=== PATIENT | female | born 1975 | race Caucasian/White ===

== ENCOUNTER 2016-11-23 09:42 | Emergency (ER) | payer MEDICAID ==
[2016-11-23 10:08] VITALS: BP 121/86; BMI 24.3
--- NOTE | 2016-11-23 10:58 | DR.EXTPAIN ---
HPI - Time seen Time seen: 10:50 - PCP Primary Care Physician: YO DAMICO - HPI Comment HPI Comment: WORSE TODAY. NO KNOWN INJURY. - Complaint/Symptoms Chief Complaint Doctor Comments: LEFT ARM PAIN TIMES 5 WEEKS. Chief Complaint:: PT C/O PAIN TO HER LEFT ARM PT WAS DX WITH TENNIS ELBOW NOW THE PAIN IS OVER HER WHOLE ARM AND HAND AND SHE HAS SHARP PAINS THAT GO THREW HER HAND ,,, AND Self Treatment fo Chief Complaint: HOME MEDS .. - Nurses notes reviewed Nurses Notes Review: Yes - Source History Provided: Patient - Mode of arrival Mode of Arrival: Ambulatory - Timing Onset of Chief Complaint: 10/13/16 - Context History of: None - Associated signs and symptoms Associated Signs and Symptoms: Pain, Swelling PMH - PMH Past Medical History: Yes Past Medical History: Arthritis Past Surgical History: Yes Surgical History: Hysterectomy, Tonsillectomy - Family History History of Family Medical Conditions: Yes Family Medical History: Diabetes Mellitus, Cancer, [place], Coronary Artery Disease, Hypertension - Social History Does patient currently use any type of tobacco product: Yes Have you used tobacco products in the last 12 months: Yes Type of Tobacco Use: Cigarettes How many years tobacco product used: 10 Does any household member use tobacco: No Alcohol Use: None Do you use any recreational Drugs:: No Lives With: Family Lives Where: Assisted Care - infectious screening In the last 2 months have you had wt loss of >10#?: NO Have you had fever, night sweats or hemotysis?: No Have you traveled outside the country in the last 6 months?: No Isolation: Standard ROS - Review of Systems Constitutional: No Symptoms Reported Eyes: No Symptoms Reported ENTM: No Symptoms Reported Respiratoy: No Symptoms Reported Cardiovascular: No Symptoms Reported Gastrointestinal/Abdominal: No Symptoms Reported Genitourinary: No Symptoms Reported Neurological: No Symptoms Reported Musculoskeletal: Left, Shoulder, Arm, Elbow Integumentary: No Symptoms Reported Hematologic/Lymphatic: No Symptoms Reported Endocrine: No Symptoms Reported PE - Vital Signs Vitals: Temperature 97.7 F Pulse Rate 88 Respiratory Rate 18 Blood Pressure 121/86 O2 Sat by Pulse Oximetry 100 - General Limitations: No Limitations General Appearance: Alert - Head Head Exam: Normal Inspection - Eyes Eye exam: Normal Appearance - ENT ENT Exam: Normal External Ear Exam - Neck Neck Exam: Trachea Midline - Chest Chest Inspection: Symmetric Chest Wall Rise - Respiratory Respiratory Exam: Normal Lung Sounds Bilat Respiratory Exam: Bilateral Clear to Auscultation - Cardiovascular Cardiovascular Exam: Regular Rate, Normal Rhythm, Normal Heart Sounds - Abdominal Exam Abdominal Exam: Normal Bowel Sounds, Soft. negative: Tenderness - Extremities Extremities Exam: Tenderness (LEFT ARM TENDERNESS.) - Upper Extremities Shoulder Exam: Tenderness. negative: Full ROM (DECREASE ROTATION LT SHOULDER.) - Lower Extremities Neurovascular/Tendon Exam: Normal Capillary Refill Gait Exam: Observed and Normal - Back Back Exam: Normal Inspection - Neurological Neurological Exam: Alert, Oriented X3 - Psychiatric Psychiatric Exam: Normal Affect, Normal Mood - Skin Skin Exam: Normal Color MDM - Differential Diagnosis Differential Diagnosis: Fracture (MUSCULOSKELETAL PAIN), Sprain Course - Treatment Treatment: SEE ORDERS. PATIENT DO NOT WISH TO HAVE XRAY. - Education/Counseling Education/Counseling: Patient, Education Educated On: Diagnosis, Needs for Follow Up - Diagnosis Discharge Problem: Musculoskeletal back pain, Left arm pain - Discharge Plan Condition: Stable Prescriptions: Ketorolac Tromethamine [Toradol Tab] 10 mg PO Q8H PRN #15 tab PRN Reason: Pain Methylprednisolone Dosepak 4Mg [MEDROL DOSEPAK (4 mg tab x 21)] 1 marysol PO ONCE # 1 marysol - Follow ups/Referrals Follow ups/Referrals: [facility],None [Primary Care Provider] - 3 days - Instructions Instructions: Musculoskeletal Pain Additional Instructions: RETURN TO ED IF WORSE.
== END 2016-11-23 11:11 | disposition home or self-care (01) ==
LOC: ER 10:14
DX: M79.1 Myalgia (principal); M79.602 Pain in left arm
CPT/HCPCS: 99281; 99282

== ENCOUNTER → 2017-01-12 | Outpatient (CLI) | payer MEDICAID ==
--- NOTE | 2017-01-12 13:57 | RAD ---
Examination: Left shoulder, three views History: Osteoarthritis Findings: There is no evidence for fracture, displacement, bone destruction or specific arthropathy. The humeral head is in normal position. No periarticular calcification is identified. Impression: No significant abnormality. Reported By:
--- NOTE | 2017-01-12 13:57 | RAD ---
Examination: Left elbow, three views History: Pain Findings: No evidence for fracture, dislocation or synovial distension. Joint spaces are preserved. Impression: Within normal limits. Reported By:
== END ==
LOC: RAD 13:30
PROVIDERS: ATTEND Nurse Practitioner Family
DX: M19.012 Primary osteoarthritis, left shoulder (principal); M25.522 Pain in left elbow
CPT/HCPCS: 73030; 73070

== ENCOUNTER → 2017-03-30 | Outpatient (CLI) | payer MEDICAID ==
[2017-03-30 09:46] LABS: BASOPHILS # (AUTO) 0.1 X10^3/uL (0.0-0.1); BASOPHILS % (AUTO) 0.7 % (0.2-1.0); EOSINOPHILS # (AUTO) 0.1 x10^3/uL (0.0-0.2); EOSINOPHILS % (AUTO) 1.5 % (0.9-2.9); HEMATOCRIT 37.9 % (36.0-47.0); HEMOGLOBIN 13.1 g/dL (12.0-16.0); LYMPHOCYTES # (AUTO) 2.9 X10^3/uL (1.3-2.9); LYMPHOCYTES % (AUTO) 33.6 % (21.0-51.0); MEAN CORPUSCULAR HEMOGLOBIN 31.3 pg (27.0-34.0); MEAN CORPUSCULAR HGB CONC 34.5 g/dL (33.0-35.0); MEAN CORPUSCULAR VOLUME 90.6 fL (80.0-100.0); MEAN PLATELET VOLUME 8.6 fL (7.4-11.0); MONOCYTES # (AUTO) 0.5 x10^3/uL (0.3-0.8); MONOCYTES % (AUTO) 6.1 % (0.0-13.0); NEUTROPHILS % (AUTO) 58.1 % (42.0-75.0); PLATELET COUNT 224 X10^3/uL (150.0-450.0); RED BLOOD COUNT 4.19 X10^6/uL (3.5-5.4); WHITE BLOOD COUNT 8.6 X10^3/uL (3.6-10.0)
[2017-03-30 09:57] LABS: ALANINE AMINOTRANSFERASE 21 Units/L (12-78); ALBUMIN 3.7 g/dL (3.4-5.0); ALKALINE PHOSPHATASE 59 Units/L (46-116); AMYLASE 52 Units/L (25-115); ASPARTATE AMINO TRANSFERASE 14 Units/L (15-37); BLOOD UREA NITROGEN 16 mg/dL (7-18); CALCIUM 8.7 mg/dL (8.5-10.1); CARBON DIOXIDE 25.5 mmol/L (21-32); CHLORIDE 105 mmol/L (98-107); LIPASE 81 Units/L (73-393); SODIUM 139 mmol/L (136-145); TOTAL PROTEIN 7.5 g/dL (6.4-8.2); eGFR BLACK RACES > 60 (>60); eGFR NON BLACK RACES > 60 (>60)
== END ==
LOC: LAB 09:25
PROVIDERS: ATTEND Nurse Practitioner Family
DX: R07.89 Other chest pain (principal)
CPT/HCPCS: 36415; 80053; 82150; 83690; 85025; 86677; 93005; 93010

== ENCOUNTER 2017-06-16 10:28 | Day surgery (SDC) | payer MEDICAID ==
[2017-06-16] MEDS ORDERED: D5 LR 1000 ML 1,000 ML IV ONE (11:24)
[2017-06-16] MEDS ORDERED: DIPRIVAN VIAL 20 ML ONE (12:36)
[2017-06-16] MEDS ORDERED: DIPRIVAN VIAL 10 ML ONE (12:51)
[2017-06-16 13:15] VITALS: BP 121/70
== END 2017-06-16 13:20 | disposition home or self-care (01) ==
LOC: SURG1 10:28
PROVIDERS: ATTEND Internal Medicine Gastroenterology
PROC: 0DB88ZX Excision of Small Intestine, Via Natural or Artificial Opening Endoscopic, Diagnostic (ICD-10-PCS; principal; 2017-06-16 14:30)
PROC: 0D757ZZ Dilation of Esophagus, Via Natural or Artificial Opening (ICD-10-PCS; principal; 2017-06-16 14:30)
PROC: 0DB68ZX Excision of Stomach, Via Natural or Artificial Opening Endoscopic, Diagnostic (ICD-10-PCS; principal; 2017-06-16 14:30)
PROC: 0DJ08ZZ Inspection of Upper Intestinal Tract, Via Natural or Artificial Opening Endoscopic (ICD-10-PCS; principal; 2017-06-16 14:30)
DX: R13.19 Other dysphagia (principal); R10.84 Generalized abdominal pain; R11.2 Nausea with vomiting, unspecified; R10.13 Epigastric pain; K20.8 Other esophagitis; K22.2 Esophageal obstruction; K29.60 Other gastritis without bleeding
CPT/HCPCS: A4217; J3490; J7120

== ENCOUNTER → 2017-06-24 | Outpatient (CLI) | payer MEDICAID ==
[2017-06-16 13:15] VITALS: BP 121/70
--- NOTE | 2017-06-24 15:16 | RAD ---
Examination: Soft tissues of neck, two views History: Painful swallowing Findings: AP and lateral views of the cervical soft tissues demonstrate no evidence for airway disten tion, mass, pathologic calcification or epiglottic enlargement. Impression: No abnormality demonstrated. Reported By:
== END ==
LOC: RAD 14:48
PROVIDERS: ATTEND Internal Medicine
DX: R13.19 Other dysphagia (principal)
CPT/HCPCS: 70360